=== PATIENT | female | born 1975 | race Caucasian/White ===

== ENCOUNTER → 2021-08-16 16:32 | Outpatient (BNVA) | payer OTHER, SELFPAY | PROVIDERS: Family Provider Physician Assistant Medical; PCP Nurse Practitioner Family; Visit Provider Nurse Practitioner Family | DX: M54.9 Dorsalgia, unspecified (principal); R10.11 Right upper quadrant pain; K21.9 Gastro-esophageal reflux disease without esophagitis | CPT/HCPCS: 74018; 81000 ==

== ENCOUNTER 2021-08-27 16:48 | Emergency (ER) | payer OTHER, SELFPAY ==
[2021-08-27 17:39] VITALS: BP 167/93; PULSE 75; RESP 18; TEMP 36.8; O2SAT 99; BMI 47.5
[2021-08-27 18:57] VITALS: BP 150/94; PULSE 83; RESP 18; O2SAT 98
--- NOTE | 2021-08-27 20:41 | ED_ITS ---
Documented by User: Darrell Nguyen MD 08/29/21 18:15 HPI - Abdominal Pain General: Chief Complaint: Abdominal Pain Stated Complaint: R SIDE FLANK PAIN Time Seen by Provider: 08/27/21 20:41 History of Present Illness: HPI narrative: Ms. Spence is a 46-year-old lady without significant past medical history presents emergency department due to right upper quadrant abdominal pain and lower chest pain. Symptoms have been ongoing for a number of month. She cannot recall any specific provoking factors, she denies that they are worse after eating or drinking. This initially was just intermittent had become more frequent and is now constant over the past week. She saw her PCP and tried on PPI and had a chest x-ray done at that time however symptoms continue to worsen. Quality is sharp and stabbing. Intensity is moderate to severe. She does have mild improvement with pressure in the area. She has had nausea and vomiting x4. No diarrhea or urinary symptoms. Only abdominal surgeries are x2. No other changes to health, signs of systemic illness, exacerbating relieving factors identified. No history of similar. Review of Systems General: Reports: 10 or more systems reviewed and unremarkable except in HPI and below PFSH ED PFSH: Medical History (Updated 08/30/21 @ 15:55 by AFSANEH Erazo) Cholelithiasis GERD (gastroesophageal reflux disease) Lung nodules RUQ pain Family History Other CAD (coronary artery disease) Cancer Social History Smoking and tobacco status: never smoked Alcohol intake: never Physical Exam Narrative: EXAM NARRATIVE: GENERAL/CONSTITUTIONAL - well-appearing. Distress due to abdominal discomfort. Obese. Eyes - PERRL, no conjunctival injection ENMT - Atraumatic external nose and ears. Moist mucous membranes NECK - supple. trachea midline CARDIOVASCULAR - regular rate and rhythm. Peripheral pulses 2+ and equal RESPIRATORY -clear to auscultation bilaterally. No retractions or accessory muscle use. ABDOMEN/GI -tenderness palpation of the right upper quadrant, positive Roberson's. No tenderness to percussion or evidence of peritonitis MSK - Extremities without obvious deformity or tenderness to palpation SKIN - Warm, Dry NEURO - alert and appropriately oriented. Moves all extremities equally. PSYCH - Appropriate mood and affect Course ED course: - Patient was seen and evaluated by me at bedside - Patient placed on cardiac monitors, IV access obtained - Initial evaluation notable for right upper quadrant tenderness to palpation without evidence of peritonitis. -Symptom treatment ordered - Labs notable for no leukocytosis, no significant metabolic abnormality, no evidence of urinary tract infection peer -Patient care handed off to Dr. Galindo pending completion of CT read and reevaluation of patient condition Vital Signs: Vital signs: Vital Signs Temperature 98.2 F 08/27/21 23:16 Pulse Rate 80 08/28/21 00:02 Respiratory Rate 16 08/28/21 00:02 Blood Pressure 133/83 08/28/21 00:02 Pulse Oximetry 97 08/28/21 00:02 MDM - Abdominal Pain Medical Records: Attestation: I reviewed the patient's medical records. Lab Data: Attestation: I reviewed the patient's lab results. Labs: Lab Results 08/27/21 08/27/21 08/27/21 21:30 21:30 21:30 WBC 7.8 10^3/uL 10^3/ uL (4.0-10.0) RBC 3.77 10^6/uL L 10 ^6/uL (4.1-5.3) Hgb 11.3 g/dL L g/dL (11.5-15.3) Hct 35.3 % L % (37.0-47.0) MCV 93.6 fl fl (81-99) MCH 30.0 pg pg (28.0-34.0) MCHC 32.0 g/dL g/dL (30.0-36.0) RDW 12.8 % % (12.1-15.1) Plt Count 247 10^3/cmm 10^3 /cmm (130-400) MPV 9.4 fL fL (7.4-10.4) Neut % (Auto) 59.7 % % Lymph % (Auto) 34.1 % % [place] % (Auto) 4.4 % % Eos % (Auto) 1.0 % % Baso % (Auto) 0.3 % % Neut # (Auto) 4.64 10^3/uL 10^3 /uL (1.8-7.7) Lymph # (Auto) 2.7 10^3/uL 10^3/ uL (0.8-4.8) [place] # (Auto) 0.3 10^3/uL 10^3/ uL (0.2-0.9) Eos # (Auto) 0.1 10^3/uL 10^3/ uL (0.0-0.8) Baso # (Auto) 0.0 10^3/uL 10^3/ uL (0.0-0.1) Nucleated RBC % (a uto) 0 % % Nucleated RBCs # 0.0 /100WBC /100W BC Sodium 139 mmol/L mmol/L (136-145) Potassium 4.2 mmol/L mmol/L (3.5-5.1) Chloride 105 mmol/L mmol/L (98-107) Carbon Dioxide 25 mmol/L mmol/L (22-29) Anion Gap 13.2 (5-19) BUN 8 mg/dL mg/dL (6-20) Creatinine 0.6 mg/dL mg/dL (0.5-0.9) GFR Calculation 106.7 mL/min mL/m in (90-130) Glucose 89 mg/dL mg/dL (65-115) Calculated Osmolal ity 286 mOsm/kg mOsm/ kg (285-295) Calcium 8.9 mg/dL mg/dL (8.5-10.5) Total Bilirubin 0.3 mg/dL mg/dL (0.15-1.2) AST 30 U/L U/L (0-32) ALT 35 U/L H U/L (0-33) Alkaline Phosphata se 84 IU/L IU/L (35-105) Troponin T Baselin e 6 ng/L ng/L (0-10) Total Protein 7.5 g/dL g/dL (6.6-8.7) Albumin 4.1 g/dL g/dL (3.5-5.2) Globulin 3.4 g/dL g/dL (1.3-4.6) Lipase 39 U/L U/L (13-60) Urine Color Urine Appearance Urine pH Ur Specific Gravit y Urine Protein Urine Glucose (UA) Urine Ketones Urine Blood Urine Nitrate Urine Bilirubin Urine Urobilinogen Ur Leukocyte Jackie ase Urine HCG, Qual 08/27/21 08/27/21 23:01 23:01 WBC RBC Hgb Hct MCV MCH MCHC RDW Plt Count MPV Neut % (Auto) Lymph % (Auto) Ellsworth % (Auto) Eos % (Auto) Baso % (Auto) Neut # (Auto) Lymph # (Auto) [place] # (Auto) Eos # (Auto) Baso # (Auto) Nucleated RBC % (a uto) Nucleated RBCs # Sodium Potassium Chloride Carbon Dioxide Anion Gap BUN Creatinine GFR Calculation Glucose Calculated Osmolal ity Calcium Total Bilirubin AST ALT Alkaline Phosphata se Troponin T Baselin e Total Protein Albumin Globulin Lipase Urine Color Straw (Yellow) Urine Appearance Clear (CLEAR) Urine pH 5 (5-7) Ur Specific Gravit y 1.005 (1.005-1.030) Urine Protein Neg (Negative) Urine Glucose (UA) Norm (Normal) Urine Ketones Negative (Negative) Urine Blood Neg (Negative) Urine Nitrate Negative (Negative) Urine Bilirubin Neg (Negative) Urine Urobilinogen Norm mg/dL mg/dL (Negative) Ur Leukocyte Jackie ase Negative (Negative) Urine HCG, Qual Negative (Negative) EKG Data ^: EKG 1: Attestation: I personally reviewed and interpreted this EKG as follows: EKG interpretation date: 08/27/21 EKG interpretation time: 21:21 Interpretation: Twelve-lead EKG shows a regular sinus rhythm at a rate of 68. NH interval 226, QRS duration 114, QTc 432. Normal axis Interpretation: Sinus rhythm, first-degree AV block, nonspecific interventricular conduction delay. Discharge Plan Discharge Patient Disposition: Home Clinical Impression: Abdominal pain Condition: Stable Prescriptions: No Action omeprazole 40 mg capsule,delayed release(DR/EC) 40 mg PO DAILY 30 Days Qty: 30 RF: 0 Discharge Orders: Discharge ED (Routine); Ordered 08/27/21 Ordered By: José Miguel Galindo Referrals: ISRA Lamas, SENIOR MANAGER ASSET PROTECTION [Primary Care Provider] - Discharge Diet: Advance as tolerated Discharge Activity: Resume usual activity Patient Instructions: Abdominal Pain (ED), Opioid Safety Activity Restrictions/Additional Instructions: [facility] [id number] Scan ReportSigned Patient: Conrad Melgar #: [id number]: 1975Acct #:[id number]/Sex: 46 / FADM Date: 08/27/21Loc: ERRoom/Bed:Attending Dr: Ordering Provider/Ordering MD: Darrell Nguyen MD Date of Service: 08/27/21 Procedure(s): CT abdomen pelvis w con* [id number] Accession Number(s): [id number] Report Number: [id number] PROCEDURE INFORMATION: Exam: CT Abdomen And Pelvis With Contrast Exam date and time: 08/27/2021 10:20 PM Age: 46 years old Clinical indication: Nausea and vomiting; Abdominal pain; Localized; Right upper quadrant (ruq); Prior surgery; Surgery type: , iud; Additional info: Ruq pain TECHNIQUE: Imaging protocol: Computed tomography of the abdomen and pelvis with contrast. Radiation optimization: All CT scans at this facility use at least one of these dose optimization techniques: automated exposure control; mA and/or kV adjustment per patient size (includes targeted exams where dose is matched to clinical indication); or iterative reconstruction. Contrast material: OMNI 300; Contrast volume: 95 ml; Contrast route: INTRAVENOUS (IV); COMPARISON: CR XR KUB [id number] 08/16/2021 4:38 PM RADIATION DOSE METRICS: Total DLP (mGy-cm): 1595.29 FINDINGS: Lungs: 3 mm right lower lobe nodule. 8 mm sub solid nodule in the left lower lobe. Liver: Normal. No mass. Gallbladder and bile ducts: Multiple calcified stones in a contracted gallbladder. The bile ducts are normal. Pancreas: Normal. No ductal dilation. Spleen: Normal. No splenomegaly. Adrenal glands: Normal. No mass. Kidneys and ureters: Normal. No hydronephrosis. Stomach and bowel: Unremarkable. No obstruction. No mucosal thickening. Appendix: The appendix is visualized and is normal. Intraperitoneal space: Unremarkable. No free air. No significant fluid collection. Vasculature: Unremarkable. No abdominal aortic aneurysm. Lymph nodes: Unremarkable. No enlarged lymph nodes. Urinary bladder: Unremarkable as visualized. Reproductive: IUD in standard position within the uterus. The uterus and ovaries are normal. Bones/joints: Unremarkable. No acute fracture. Soft tissues: Small fat containing left diaphragm hernia. CT/CT abdomen pelvis w con* [id number] IMPRESSION: 1. Multiple calcified stones within a contracted gallbladder. No visible wall thickening or evidence to suggest acute cholecystitis. 2. 3 mm right and 8 mm sub solid left pulmonary nodules. Recommend CT Chest at 6-12 months to confirm persistence of the nodule, then CT Chest at 3 years and 5 years. (Reference: Alvaro) References: Alvaro Gonzalez, et al. Guidelines for Management of Incidental Pulmonary Nodules Detected on CT Images: From the Fleischner Society 2017. Radiology. 2017;284(1):228-243. Radiation Dose CTDIVOL = (mGy): DLP = 1595.29 (mGy-cm) Dictated By:Drew Hanley By:Drew Hanley Date/Time:08/27/21 2346DD/ 19 Coding Level of Care Code ED Tuck Pointer for Chg Fwd Documented by User: José Miguel Galindo MD 08/30/21 21:39 HPI - Abdominal Pain General: Chief Complaint: Abdominal Pain Stated Complaint: R SIDE FLANK PAIN Time Seen by Provider: 08/27/21 20:41 PFSH ED PFSH: Medical History (Updated 08/30/21 @ 15:55 by AFSANEH Erazo) Cholelithiasis GERD (gastroesophageal reflux disease) Lung nodules RUQ pain Family History Other CAD (coronary artery disease) Cancer Social History Smoking and tobacco status: never smoked Alcohol intake: never Course Vital Signs: Vital signs: Vital Signs Temperature 98.2 F 08/27/21 23:16 Pulse Rate 80 08/28/21 00:02 Respiratory Rate 16 08/28/21 00:02 Blood Pressure 133/83 08/28/21 00:02 Pulse Oximetry 97 08/28/21 00:02 MDM - Abdominal Pain MDM Narrative: Medical decision making narrative: CT did not show any signs of acute findings other than gallbladder stones. No signs of acute abdominal path ologies. I have given patient follow up with our administration manager to be seen by our outpatient general surgeon for gallbladder pathologies. Patient aware of a call from our administration manager to schedule for appointment(s) and verbalizes understanding of the importance of following up. Incidental findings of pulmonary nodules discussed extensively with patient. Patient received a copy of the CT report with the documented findings. Patient is instructed to follow up urgently with specialists. Disposition: Discharge. Patient counseled regarding diagnostic impression, treatment plan. Patient given ED strict return precautions to return for continuation, worsening, or development of new symptoms. Instructed to f/u w/ PCP regarding symptoms today. Patient verbalized understanding. Lab Data: Labs: Lab Results 08/27/21 08/27/21 08/27/21 21:30 21:30 21:30 WBC 7.8 10^3/uL 10^3/ uL (4.0-10.0) RBC 3.77 10^6/uL L 10 ^6/uL (4.1-5.3) Hgb 11.3 g/dL L g/dL (11.5-15.3) Hct 35.3 % L % (37.0-47.0) MCV 93.6 fl fl (81-99) MCH 30.0 pg pg (28.0-34.0) MCHC 32.0 g/dL g/dL (30.0-36.0) RDW 12.8 % % (12.1-15.1) Plt Count 247 10^3/cmm 10^3 /cmm (130-400) MPV 9.4 fL fL (7.4-10.4) Neut % (Auto) 59.7 % % Lymph % (Auto) 34.1 % % Ellsworth % (Auto) 4.4 % % Eos % (Auto) 1.0 % % Baso % (Auto) 0.3 % % Neut # (Auto) 4.64 10^3/uL 10^3 /uL (1.8-7.7) Lymph # (Auto) 2.7 10^3/uL 10^3/ uL (0.8-4.8) [place] # (Auto) 0.3 10^3/uL 10^3/ uL (0.2-0.9) Eos # (Auto) 0.1 10^3/uL 10^3/ uL (0.0-0.8) Baso # (Auto) 0.0 10^3/uL 10^3/ uL (0.0-0.1) Nucleated RBC % (a uto) 0 % % Nucleated RBCs # 0.0 /100WBC /100W BC Sodium 139 mmol/L mmol/L (136-145) Potassium 4.2 mmol/L mmol/L (3.5-5.1) Chloride 105 mmol/L mmol/L (98-107) Carbon Dioxide 25 mmol/L mmol/L (22-29) Anion Gap 13.2 (5-19) BUN 8 mg/dL mg/dL (6-20) Creatinine 0.6 mg/dL mg/dL (0.5-0.9) GFR Calculation 106.7 mL/min mL/m in (90-130) Glucose 89 mg/dL mg/dL (65-115) Calculated Osmolal ity 286 mOsm/kg mOsm/ kg (285-295) Calcium 8.9 mg/dL mg/dL (8.5-10.5) Total Bilirubin 0.3 mg/dL mg/dL (0.15-1.2) AST 30 U/L U/L (0-32) ALT 35 U/L H U/L (0-33) Alkaline Phosphata se 84 IU/L IU/L (35-105) Troponin T Baselin e 6 ng/L ng/L (0-10) Total Protein 7.5 g/dL g/dL (6.6-8.7) Albumin 4.1 g/dL g/dL (3.5-5.2) Globulin 3.4 g/dL g/dL (1.3-4.6) Lipase 39 U/L U/L (13-60) Urine Color Urine Appearance Urine pH Ur Specific Gravit y Urine Protein Urine Glucose (UA) Urine Ketones Urine Blood Urine Nitrate Urine Bilirubin Urine Urobilinogen Ur Leukocyte Jackie ase Urine HCG, Qual 08/27/21 08/27/21 23:01 23:01 WBC RBC Hgb Hct MCV MCH MCHC RDW Plt Count MPV Neut % (Auto) Lymph % (Auto) Ell[place] % (Auto) Eos % (Auto) Baso % (Auto) Neut # (Auto) Lymph # (Auto) Ell[place] # (Auto) Eos # (Auto) Baso # (Auto) Nucleated RBC % (a uto) Nucleated RBCs # Sodium Potassium Chloride Carbon Dioxide Anion Gap BUN Creatinine GFR Calculation Glucose Calculated Osmolal ity Calcium Total Bilirubin AST ALT Alkaline Phosphata se Troponin T Baselin e Total Protein Albumin Globulin Lipase Urine Color Straw (Yellow) Urine Appearance Clear (CLEAR) Urine pH 5 (5-7) Ur Specific Gravit y 1.005 (1.005-1.030) Urine Protein Neg (Negative) Urine Glucose (UA) Norm (Normal) Urine Ketones Negative (Negative) Urine Blood Neg (Negative) Urine Nitrate Negative (Negative) Urine Bilirubin Neg (Negative) Urine Urobilinogen Norm mg/dL mg/dL (Negative) Ur Leukocyte Jackie ase Negative (Negative) Urine HCG, Qual Negative (Negative) Imaging Data ^: Other Imaging: Radiologist's impression: [facility] [id number] Scan ReportSigned Patient: Conrad Melgar #: [id number]: 1975Acct#:[id number]/Sex: 46 / FADM Date: 08/27/21Loc: ERRoom/Bed:Attending Dr: Ordering Provider/Ordering MD: Darrell Nguyen MD Date of Service: 08/27/21 Procedure(s): CT abdomen pelvis w con* [id number] Accession Number(s): [id number] Report Number: [id number] PROCEDURE INFORMATION: Exam: CT Abdomen And Pelvis With Contrast Exam date and time: 08/27/2021 10:20 PM Age: 46 years old Clinical indication: Nausea and vomiting; Abdominal pain; Localized; Right upper quadrant (ruq); Prior surgery; Surgery type: , iud; Additional info: Ruq pain TECHNIQUE: Imaging protocol: Computed tomography of the abdomen and pelvis with contrast. Radiation optimization: All CT scans at this facility use at least one of these dose optimization techniques: automated exposure control; mA and/or kV adjustment per patient size (includes targeted exams where dose is matched to clinical indication); or iterative reconstruction. Contrast material: OMNI 300; Contrast volume: 95 ml; Contrast route: INTRAVENOUS (IV); COMPARISON: CR XR KUB [id number] 08/16/2021 4:38 PM RADIATION DOSE METRICS: Total DLP (mGy-cm): 1595.29 FINDINGS: Lungs: 3 mm right lower lobe nodule. 8 mm sub solid nodule in the left lower lobe. Liver: Normal. No mass. Gallbladder and bile ducts: Multiple calcified stones in a contracted gallbladder. The bile ducts are normal. Pancreas: Normal. No ductal dilation. Spleen: Normal. No splenomegaly. Adrenal glands: Normal. No mass. Kidneys and ureters: Normal. No hydronephrosis. Stomach and bowel: Unremarkable. No obstruction. No mucosal thickening. Appendix: The appendix is visualized and is normal. Intraperitoneal space: Unremarkable. No free air. No significant fluid collection. Vasculature: Unremarkable. No abdominal aortic aneurysm. Lymph nodes: Unremarkable. No enlarged lymph nodes. Urinary bladder: Unremarkable as visualized. Reproductive: IUD in standard position within the uterus. The uterus and ovaries are normal. Bones/joints: Unremarkable. No acute fracture. Soft tissues: Small fat containing left diaphragm hernia. CT/CT abdomen pelvis w con* [id number] IMPRESSION: 1. Multiple calcified stones within a contracted gallbladder. No visible wall thickening or evidence to suggest acute cholecystitis. 2. 3 mm right and 8 mm sub solid left pulmonary nodules. Recommend CT Chest at 6-12 months to confirm persistence of the nodule, then CT Chest at 3 years and 5 years. (Reference: Alvaro) References: Alvaro Gonzalez, et al. Guidelines for Management of Incidental Pulmonary Nodules Detected on CT Images: From the Fleischner Society 2017. Radiology. 2017;284(1):228-243. Radiation Dose CTDIVOL = (mGy): DLP = 1595.29 (mGy-cm) Dictated By:Ilia Hanleyed By:Drew Hanley Date/Time:08/27/21 2346DD/ 19 Discharge Plan Discharge Patient Disposition: Home Clinical Impression: Abdominal pain Condition: Stable Prescriptions: No Action omeprazole 40 mg capsule,delayed release(DR/EC) 40 mg PO DAILY 30 Days Qty: 30 RF: 0 Discharge Orders: Discharge ED (Routine); Ordered 08/27/21 Ordered By: José Miguel Galindo Referrals: ISRA Lamas, SENIOR MANAGER ASSET PROTECTION [Primary Care Provider] - Discharge Diet: Advance as tolerated Discharge Activity: Resume usual activity Patient Instructions: Abdominal Pain (ED), Opioid Safety Activity Restrictions/Additional Instructions: [facility] [place] [id number] [place], [place] [address]LT Scan ReportSigned Patient: Conrad Melgar #: [id number]: 1975Acct#:[id number]/Sex: 46 / FADM Date: 08/27/21Loc: ERRoom/Bed:Attending Dr: Ordering Provider/Ordering MD: Darrell Nguyen MD Date of Service: 08/27/21 Procedure(s): CT abdomen pelvis w con* [id number] Accession Number(s): [id number] Report Number: [id number] PROCEDURE INFORMATION: Exam: CT Abdomen And Pelvis With Contrast Exam date and time: 08/27/2021 10:20 PM Age: 46 years old Clinical indication: Nausea and vomiting; Abdominal pain; Localized; Right upper quadrant (ruq); Prior surgery; Surgery type: , iud; Additional info: Ruq pain TECHNIQUE: Imaging protocol: Computed tomography of the abdomen and pelvis with contrast. Radiation optimization: All CT scans at this facility use at least one of these dose optimization techniques: automated exposure control; mA and/or kV adjustment per patient size (includes targeted exams where dose is matched to clinical indication); or iterative reconstruction. Contrast material: OMNI 300; Contrast volume: 95 ml; Contrast route: INTRAVENOUS (IV); COMPARISON: CR XR KUB [id number] 08/16/2021 4:38 PM RADIATION DOSE METRICS: Total DLP (mGy-cm): 1595.29 FINDINGS: Lungs: 3 mm right lower lobe nodule. 8 mm sub solid nodule in the left lower lobe. Liver: Normal. No mass. Gallbladder and bile ducts: Multiple calcified stones in a contracted gallbladder. The bile ducts are normal. Pancreas: Normal. No ductal dilation. Spleen: Normal. No splenomegaly. Adrenal glands: Normal. No mass. Kidneys and ureters: Normal. No hydronephrosis. Stomach and bowel: Unremarkable. No obstruction. No mucosal thickening. Appendix: The appendix is visualized and is normal. Intraperitoneal space: Unremarkable. No free air. No significant fluid collection. Vasculature: Unremarkable. No abdominal aortic aneurysm. Lymph nodes: Unremarkable. No enlarged lymph nodes. Urinary bladder: Unremarkable as visualized. Reproductive: IUD in standard position within the uterus. The uterus and ovaries are normal. Bones/joints: Unremarkable. No acute fracture. Soft tissues: Small fat containing left diaphragm hernia. CT/CT abdomen pelvis w con* [id number] IMPRESSION: 1. Multiple calcified stones within a contracted gallbladder. No visible wall thickening or evidence to suggest acute cholecystitis. 2. 3 mm right and 8 mm sub solid left pulmonary nodules. Recommend CT Chest at 6-12 months to confirm persistence of the nodule, then CT Chest at 3 years and 5 years. (Reference: Alvaro) References: Alvaro Gonzalez et al. Guidelines for Management of Incidental Pulmonary Nodules Detected on CT Images: From the Fleischner Society 2017. Radiology. 2017;284(1):228-243. Radiation Dose CTDIVOL = (mGy): DLP = 1595.29 (mGy-cm) Dictated By:Drew Hanley By:Drew Hanley Date/Time:08/27/21 2346DD/ 2220 Coding Level of Care Code ED Tuck Pointer for Lanreg Daisy
[2021-08-27 20:42] VITALS: BP 149/84; PULSE 74; RESP 16; TEMP 36.8; O2SAT 100
--- NOTE | 2021-08-27 20:57 | ECG_ITS ---
[facility] Test Date: 2021-08-27 Pat Name: Conrad Melgar Department: Room: Gender: Female Livestock Agent: : 1975 Requested By: Darrell Nguyen Order Number: [id number] Elmo MD: Karen Hernandez M.D. Measurements Intervals [place] Rate: 68 P: 32 NE: 226 QRS: 16 QRSD: 114 T: 16 QT: 415 QTc: 442 Interpretive Statements SINUS RHYTHM WITH FIRST DEGREE AV BLOCK LOW QRS VOLTAGE IN PRECORDIAL LEADS [QRS DEFLECTION < 1.0 mV IN CHEST LEADS] MODERATE INTRAVENTRICULAR CONDUCTION DELAY [110+ ms QRS DURATION] Compared to ECG 09/11/2016 15:40:47 Sinus arrhythmia no longer present Electronically Signed On 08-28-2021 22:46:19 CDT by Karen Hernandez M.D. [email or web address]
[2021-08-27 21:39] LABS: Basophils % 0.3 %; Eosinophils # 0.1 10^3/uL (0.0-0.8); Hematocrit 35.3 % (37.0-47.0); Hemoglobin 11.3 g/dL (11.5-15.3); Lymphocytes # 2.7 10^3/uL (0.8-4.8); Lymphocytes % 34.1 %; Mean Corpuscular Volume 93.6 fl (81-99); Mean Platelet Volume 9.4 fL (7.4-10.4); Monocytes # 0.3 10^3/uL (0.2-0.9); Monocytes % 4.4 %; Neutrophils # 4.64 10^3/uL (1.8-7.7); Neutrophils % 59.7 %; Nucleated Red Blood Cells % 0 %; Platelet Count 247 10^3/cmm (130-400); Red Blood Count 3.77 10^6/uL (4.1-5.3); Red Cell Distribution Width 12.8 % (12.1-15.1); White Blood Count 7.8 10^3/uL (4.0-10.0)
[2021-08-27 21:55] LABS: Troponin(5th) Baseline 6 ng/L (0-10)
[2021-08-27 21:56] LABS: Alanine Aminotransferase 35 U/L (0-33); Albumin Level 4.1 g/dL (3.5-5.2); Alkaline Phosphatase 84 IU/L (35-105); Anion Gap 13.2 (5-19); Aspartate Amino Transferase 30 U/L (0-32); Blood Urea Nitrogen 8 mg/dL (6-20); Calcium 8.9 mg/dL (8.5-10.5); Carbon Dioxide 25 mmol/L (22-29); Chloride 105 mmol/L (98-107); Globulin 3.4 g/dL (1.3-4.6); Glomerular Filtration Rate 106.7 mL/min (90-130); Glucose 89 mg/dL (65-115); Lipase 39 U/L (13-60); Osmolality Calculated 286 mOsm/kg (285-295); Potassium 4.2 mmol/L (3.5-5.1); Sodium 139 mmol/L (136-145); Total Bilirubin 0.3 mg/dL (0.15-1.2); Total Protein 7.5 g/dL (6.6-8.7)
--- NOTE | 2021-08-27 22:20 | CTR_ITS ---
PROCEDURE INFORMATION: Exam: CT Abdomen And Pelvis With Contrast Exam date and time: 08/27/2021 10:20 PM Age: 46 years old Clinical indication: Nausea and vomiting; Abdominal pain; Localized; Right upper quadrant (ruq); Prior surgery; Surgery type: , iud; Additional info: Ruq pain TECHNIQUE: Imaging protocol: Computed tomography of the abdomen and pelvis with contrast. Radiation optimization: All CT scans at this facility use at least one of these dose optimization techniques: automated exposure control; mA and/or kV adjustment per patient size (includes targeted exams where dose is matched to clinical indication); or iterative reconstruction. Contrast material: OMNI 300; Contrast volume: 95 ml; Contrast route: INTRAVENOUS (IV); COMPARISON: CR XR KUB [id number] 08/16/2021 4:38 PM RADIATION DOSE METRICS: Total DLP (mGy-cm): 1595.29 FINDINGS: Lungs: 3 mm right lower lobe nodule. 8 mm sub solid nodule in the left lower lobe. Liver: Normal. No mass. Gallbladder and bile ducts: Multiple calcified stones in a contracted gallbladder. The bile ducts are normal. Pancreas: Normal. No ductal dilation. Spleen: Normal. No splenomegaly. Adrenal glands: Normal. No mass. Kidneys and ureters: Normal. No hydronephrosis. Stomach and bowel: Unremarkable. No obstruction. No mucosal thickening. Appendix: The appendix is visualized and is normal. Intraperitoneal space: Unremarkable. No free air. No significant fluid collection. Vasculature: Unremarkable. No abdominal aortic aneurysm. Lymph nodes: Unremarkable. No enlarged lymph nodes. Urinary bladder: Unremarkable as visualized. Reproductive: IUD in standard position within the uterus. The uterus and ovaries are normal. Bones/joints: Unremarkable. No acute fracture. Soft tissues: Small fat containing left diaphragm hernia. CT/CT abdomen pelvis w con* [id number] IMPRESSION: 1. Multiple calcified stones within a contracted gallbladder. No visible wall thickening or evidence to suggest acute cholecystitis. 2. 3 mm right and 8 mm sub solid left pulmonary nodules. Recommend CT Chest at 6-12 months to confirm persistence of the nodule, then CT Chest at 3 years and 5 years. (Reference: Alvaro) References: Alvaro Gonzalez et al. Guidelines for Management of Incidental Pulmonary Nodules Detected on CT Images: From the Fleischner Society 2017. Radiology. 2017;284(1):228-243. Radiation Dose CTDIVOL = (mGy): DLP = 1595.29 (mGy-cm)
[2021-08-27 22:23] VITALS: BP 111/67; PULSE 71; RESP 16; O2SAT 100
[2021-08-27] MEDS: iohexol 300 mg/mL 100 mL Btl IV (22:35)
[2021-08-27 23:07] LABS: Add Urine Microscopic? NO; Charge for UA Resulting for Rev
[2021-08-27 23:12] LABS: Bilirubin Urine Neg (Negative); Blood Urine Neg (Negative); Glucose Urine UA Norm (Normal); Ketones Urine Negative (Negative); Leukocyte Esterase Urine Negative (Negative); Nitrate Urine Negative (Negative); Protein Urine Neg (Negative); Specific Gravity, Urine 1.005 (1.005-1.030); Urine Appearance Clear (CLEAR); Urine Color Straw (Yellow); Urobilinogen Urine Norm (Negative); pH Urine 5 (5-7)
[2021-08-27 23:16] VITALS: BP 133/73; PULSE 72; RESP 16; TEMP 36.8; O2SAT 98
[2021-08-28 00:02] VITALS: BP 133/83; PULSE 80; RESP 16; O2SAT 97
== END 2021-08-28 00:03 | disposition home or self-care (01) ==
PROVIDERS: Emergency Medicine; Nurse Practitioner Family; Emergency Provider Emergency Medicine; PCP Nurse Practitioner Family
DX: R10.9 Unspecified abdominal pain (principal)
CPT/HCPCS: 36415; 74177; 80053; 81003; 81025; 83690; 84484; 85025; 93005; 99284; Q9967

== ENCOUNTER 2025-03-02 11:01 | Outpatient (CLI) | payer BC, SELFPAY ==
--- NOTE | 2025-03-02 11:00 | MM_ITS ---
WS: [id number] BILATERAL SCREENING DIGITAL TOMOSYNTHESIS MAMMOGRAM WITH CAD HISTORY: SCREENING COMPARISON: 11/19/2023, 02/04/2019 Bilateral CC and MLO views with tomosynthesis and synthetic mammography submitted. Computer aided detection analyzed. Breast composition: The breasts are heterogeneously dense, which may obscure small masses. No suspicious masses, microcalcifications or architectural distortion. Scattered bilateral asymmetries and calcifications. No suspicious grouping of calcifications. MM/MM scr tomosynthesis [id number] IMPRESSION: BI-RADS: 2 - Benign FOLLOW UP: 1 Year Follow-up
== END 2025-03-02 11:02 | disposition home or self-care (01) ==
LOC: MOBLMAM 11:02
PROVIDERS: PCP Nurse Practitioner Family; Visit Provider Nurse Practitioner Family
DX: Z12.31 Encounter for screening mammogram for malignant neoplasm of breast (principal); R92.333 Mammographic heterogeneous density, bilateral breasts; N64.89 Other specified disorders of breast; R92.1 Mammographic calcification found on diagnostic imaging of breast
CPT/HCPCS: 77063; 77067